=== PATIENT | female | born 1970 | race Two or more races ===

== ENCOUNTER 2021-10-02 01:17 | Emergency (ER) | payer MEDICAID ==
[~2021-10-02] VITALS: Ht 152.4 cm; Wt 114.0 kg
[2021-10-02] MEDS ORDERED: SODIUM CHLORIDE 0.9% 1,000 ML IV ONE ×2 (01:45→03:00)
[2021-10-02 02:27] LABS: BASOPHILS % 0.3 % (0.0-2.0); EOSINOPHILS % 3.2 % (0.0-5.0); HEMATOCRIT. 38.2 % (36.0-48.0); HEMOGLOBIN. 11.5 g/dL (12.0-16.0); LYMPHOCYTES % 22.1 % (20.0-50.0); MEAN CORPUSCULAR HEMOGLOBIN 24.4 pg (28.0-32.0); MEAN CORPUSCULAR VOLUME 80.9 fL (81.0-99.0); MEAN PLATELET VOLUME 8.8 fl (7.4-10.4); MONOCYTES % 8.5 % (2.0-8.0); NEUTROPHILS % 65.9 % (40.0-76.0); PLATELET 166 x1000/uL (130-400); RED BLOOD CELL COUNT 4.72 mill/uL (4.2-5.4); RED CELL DISTRIBUTION WIDTH 20.4 % (11.6-14.6)
[2021-10-02 02:34] LABS: CHLORIDE 106 mEq/L (98-107)
[2021-10-02 02:46] LABS: BETA HYDROXYBUTYRATE 0.1 mMol/L (0.0-0.3)
[2021-10-02] MEDS ORDERED: FUROSEMIDE 100MG/10ML VIAL IV NR (02:48)
[2021-10-02] MEDS ORDERED: INSULIN REGULAR (HUMULIN R) 300UNITS/3ML VIAL IV NR (03:00)
[2021-10-02] MEDS ORDERED: ASPIRIN 325MG TABLET PO NR (03:00)
[2021-10-02] MEDS ORDERED: CALCIUM CHLORIDE 1GM/10ML SYR IV NR (03:00)
[2021-10-02] MEDS ORDERED: SODIUM BICARBONATE 8.4% 1 MEQ/ML 50ML SYR IV NR (03:00)
[2021-10-02 04:30] VITALS: BP 120/69
== END 2021-10-02 06:08 | disposition short-term general hospital (02) ==
LOC: ER 01:17
DX: R77.8 Other specified abnormalities of plasma proteins (principal); E10.65 Type 1 diabetes mellitus with hyperglycemia; R41.82 Altered mental status, unspecified; E87.2 Acidosis; E87.5 Hyperkalemia; I10 Essential (primary) hypertension; G58.9 Mononeuropathy, unspecified; Z74.01 Bed confinement status; Z79.4 Long term (current) use of insulin
CPT/HCPCS: 36415; 71045; 80053; 82010; 82962; 83605; 83690; 84145; 84484; 85025; 87040; 93005; 96361; 96374; 96375; 99291; J1815; J1940; J3490; J7030